=== PATIENT | female | born 1975 | race Caucasian/White ===

== ENCOUNTER 2016-08-21 08:33 | Inpatient (IN) | payer BC, MEDICAID ==
[2016-08-21 09:34] LABS: Hematocrit 39 % (35-47); Hemoglobin 12.7 g/dl (12.0-16.0); Mean Corpuscular HGB Conc 33 g/dl (31-36); Mean Corpuscular Hemoglobin 32 pg (27-31); Mean Corpuscular Volume 96 fL (80-97); Mean Platelet Volume 9 um3 (7.4-10.4); Red Blood Count 4.03 10^6/ul (4.0-5.4); Red Cell Distribution Width 14 % (10.5-15); White Blood Count 11.4 10^3/ul (3.5-10.8)
[2016-08-21] MEDS ORDERED: fentaNYL* 50 MCG/ML 2 ML VIAL (100 MCG VIAL) ONE (09:41)
[2016-08-21] MEDS ORDERED: Famotidine TAB* 20 MG PO PRN (11:12)
[2016-08-21] MEDS ORDERED: Phenylephrine IV* 40 MCG/ML 10 ML SYRINGE IV PUSH PRN ×2 (11:12)
[2016-08-21] MEDS ORDERED: EPHEDrine (Pressors)* 50 MG/ML VIAL IV PUSH PRN ×2 (11:12)
[2016-08-21] MEDS ORDERED: Sodium Citrate/Citric Acid* 15 ML UDC PO PRN (11:12)
[2016-08-21] MEDS ORDERED: Oxytocin in LR* 20 UNITS/1,000 ML BAG IVPB ONE (13:11)
[2016-08-21] MEDS ORDERED: Ibuprofen TAB* 600 MG PO PRN (13:39)
[2016-08-21] MEDS ORDERED: Dibucaine 1% 28.35 GM TUBE PR PRN (13:39)
[2016-08-21] MEDS ORDERED: Acetaminophen TAB* 325 MG PO PRN (13:39)
[2016-08-21] MEDS ORDERED: Witch Hazel PAD* JAR TOPICAL PRN (13:39)
[2016-08-21] MEDS ORDERED: Glycerin ADULT SUPP PR PRN (13:39)
[2016-08-21] MEDS ORDERED: Oxytocin in LR* 20 UNITS/1,000 ML BAG IVPB SCH (14:00)
[2016-08-21] MEDS ORDERED: Lidocaine 1% MPF wEPI 200,000* 30 ML SDV ONE (16:46)
[2016-08-21] MEDS: Docusate CAP* 100 MG PO SCH ×2 (17:51→20:22)
[2016-08-21] MEDS: Simethicone CHEW TAB* 80 MG PO SCH ×2 (17:51→20:22)
[2016-08-22 07:33] LABS: Hematocrit 33 % (35-47); Hemoglobin 10.9 g/dl (12.0-16.0); Mean Corpuscular HGB Conc 34 g/dl (31-36); Mean Corpuscular Hemoglobin 32 pg (27-31); Mean Corpuscular Volume 95 fL (80-97); Mean Platelet Volume 10 um3 (7.4-10.4); Red Blood Count 3.41 10^6/ul (4.0-5.4); Red Cell Distribution Width 14 % (10.5-15); White Blood Count 11.2 10^3/ul (3.5-10.8)
[2016-08-22] MEDS ORDERED: Ferrous Gluconate TAB* 324 MG TAB PO SCH (09:00)
[2016-08-22] MEDS: Docusate CAP* 100 MG PO SCH ×2 (10:36→11:42)
[2016-08-22 12:14] VITALS: BP 97/54
== END 2016-08-22 16:17 | disposition home or self-care (01) | DRG 560 ==
LOC: MCHOBOUT 08:33 → MCHOB 08:50
PROVIDERS: ADMIT Obstetrics & Gynecology; ATTEND Obstetrics & Gynecology
PROC: 10E0XZZ Delivery of Products of Conception, External Approach (ICD-10-PCS; principal; 2016-08-21)
PROC: 0KQM0ZZ Repair Perineum Muscle, Open Approach (ICD-10-PCS; 2016-08-21)
PROC: 10907ZC Drainage of Amniotic Fluid, Therapeutic from Products of Conception, Via Natural or Artificial Opening (ICD-10-PCS; 2016-08-21)
DX: O48.0 Post-term pregnancy (principal); K58.9 Irritable bowel syndrome, unspecified; O70.1 Second degree perineal laceration during delivery; O66.0 Obstructed labor due to shoulder dystocia; M79.7 Fibromyalgia; O09.523 Supervision of elderly multigravida, third trimester; Z3A.00 Weeks of gestation of pregnancy not specified; Z88.1 Allergy status to other antibiotic agents; Z88.8 Allergy status to other drugs, medicaments and biological substances; Z91.041 Radiographic dye allergy status; Z3A.41 41 weeks gestation of pregnancy; Z37.0 Single live birth
CPT/HCPCS: 36415; 85025; 86850; 86900; 86901; A9270-GY; J2001; J3010

== ENCOUNTER 2016-10-30 12:44 | Emergency (ER) | payer BC, MEDICAID ==
[2016-10-30 13:22] LABS: Hematocrit 40 % (35-47); Hemoglobin 13.2 g/dl (12.0-16.0); Mean Corpuscular HGB Conc 33 g/dl (31-36); Mean Corpuscular Hemoglobin 31 pg (27-31); Mean Corpuscular Volume 94 fL (80-97); Mean Platelet Volume 8 um3 (7.4-10.4); Red Blood Count 4.24 10^6/ul (4.0-5.4); Red Cell Distribution Width 13 % (10.5-15); White Blood Count 5.7 10^3/ul (3.5-10.8)
[2016-10-30] MEDS ORDERED: Albuterol/Ipratropium NEB.SOL* Albuterol 2.5 MG/Ipratropium 0.5 MG 3 ML INH ONE (13:33)
[2016-10-30 13:39] LABS: Albumin 4.3 g/dL (3.2-5.2); BUN/Creatinine Ratio 17.2 (8-20); Calcium 9.3 mg/dL (8.6-10.3); EGFR African American 148.1 (>60); EGFR Non-African American 115.1 (>60); Globulin 2.7 g/dL (2-4); Magnesium 2.3 mg/dL (1.9-2.7); Potassium 3.8 mmol/L (3.5-5.0); Total Bilirubin 2.5 mg/dL (0.2-1.0)
--- NOTE | 2016-10-30 13:45 | RAD ---
Indication: Chest tightness. Arrhythmia. Asthma. Comparison: No relevant prior exams available on the [facility] for comparison. Technique: Upright AP 1315 hours Report: Elevated lung volumes suggest potential obstructive lung disease. No pulmonary infiltrate, focal pulmonary lesion, pleural effusion, pneumothorax. The heart, pulmonary vasculature, and mediastinal contours are unremarkable. IMPRESSION: Stigmata of probable obstructive lung disease. No acute cardiopulmonary process evident.
[2016-10-30 14:16] LABS: T4 5.31 mcg/mL (6.09-12.23)
[2016-10-30 14:17] LABS: TSH (Thyroid Stimulating Horm) 0.89 mcIU/mL (0.34-5.60)
[2016-10-30] MEDS ORDERED: predniSONE TAB* 20 MG PO ONE (16:12)
[2016-10-30 16:24] VITALS: BP 99/61
--- NOTE | 2016-10-31 11:05 | ED ---
Christie Rodriguez Auryana, scribed for Zack Rowland MD on 10/30/16 at 1336 . Asthma - HPI Summary HPI Summary: 41 y/o female presents to ED c/o of asthma and chest tightness starting 6 days ago. She has had intermittent chest tightness since moving into her new house and reports smells of mold and mildew in one room in her new house. She also has SOB, a non-productive cough, postnasal drip and occasional chills when sitting in front of the air conditioning. She denies any fevers. Potential sick contact at home with children - sinus infection and GI illness. Patient also reports that she gave 9 weeks ago. Symptoms not improved with Xopenex and Albuterol (reports outdated medication). PMHx is significant for SVT and asthma- reports has been well-controlled until current complaint. - History of Current Complaint Stated Complaint: CHEST TIGHTNESS Time Seen by Provider: 10/30/16 12:52 Hx Obtained From: Patient Hx Last Menstrual Period: ~6 WEEKS AGO Onset/Duration: Gradual Onset Timing: Intermittent Episode Lasting Initial Severity: Mild Current Severity: Mild Pain Intensity: 0 Pain Scale Used: 0-10 Numeric Location/Character: Cough (Nonproductive) Alleviating Symptoms: Nothing - Used outdated xopenex and albuterol with no effect Associated Signs and Symptoms: Positive: Shortness of Breath Related History: Similar Episode/Dx as - history of asthma - Allergy/Home Medications Allergies/Adverse Reactions: Allergies Allergy/AdvReac Type Severity Reaction Status Date / Time Amoxicillin Allergy Severe DYSPNEA Verified 08/21/16 10:45 Pseudoephedrine Allergy Severe Tachycardia Verified 08/21/16 10:45 IVP DYE Allergy Severe DYSPNEA Uncoded 08/21/16 10:45 AUGMENTIN AdvReac Severe Diarrhea Uncoded 08/21/16 10:45 PMH/Surg Hx/FS Hx/Imm Hx Cardiovascular History: Reports: Hx Supraventricular Ventricular Tachycardia - Cardiac ablation, Other Cardiovascular Problems/Disorders - Sluggish tricuspid mitral valve Respiratory History: Reports: Hx Asthma - Cancer History Hx Hematologic Symptoms: No - Surgical History Surgery Procedure, Year, and Place: CARDIAC ABLATION FOR SVT, CERVICAL POLYP REMOVED 2002, Hx Anesthesia Reactions: No Infectious Disease History: No Infectious Disease History: Denies: Traveled Outside the [place] in Last 30 Days - Family History Known Family History: Positive: Cardiac Disease - Father had stents, Diabetes - Father had type 2 diabetes, Respiratory Disease - Father - pneumonia, Other - Father - TIA, Mother - gallbladder issues Negative: Renal Disease, Seizure Disorder - Social History Occupation: Employed Full-time - homemaker Lives: With Family Alcohol Use: None Substance Use Type: Reports: None Smoking Status (MU): Never Smoked Tobacco Have You Smoked in the Last Year: No Review of Systems Positive: Chills - Only when sitting in front of AC. Negative: Fever Eyes: Negative Positive: Other - Postnasal drip Cardiovascular: Negative Positive: Shortness Of Breath, Cough - Nonproductive Gastrointestinal: Negative Genitourinary: Negative Musculoskeletal: Negative Skin: Negative Neurological: Negative Psychological: Normal All Other Systems Reviewed And Are Negative: Yes Physical Exam - Summary Physical Exam Summary: VITAL SIGNS: Reviewed. GENERAL: Patient is a well developed and nourished female with some distress secondary to the shortness of breath. However, she is able to speak in full sentences. HEAD AND FACE: Normocephalic and atraumatic. EYES: PERRLA, EOMI x 2, No injected conjunctiva. EARS: Hearing grossly intact. Ear canals and tympanic membranes WNL MOUTH: Dry oral mucosa. NECK: Supple, trachea is midline, no adenopathy, no JVD, no carotid bruit. CHEST: Symmetric, No intercostal or abdominal retraction, LUNGS: Slight wheezing and decreased breath sounds in the bases of the lungs .No crackles. CVS: RRR,, S1 and S2 present, no murmurs or gallops appreciated. ABDOMEN: Soft, non-tender. No signs of distention. Positive BS. No rebound, no guarding, and no masses palpated. EXTREMITIES: FROM in all major joints, no edema, no cyanosis or clubbing. NEURO: Alert and oriented x 3. No acute neurological deficits. Speech is normal and follows commands. SKIN: Dry and warm. Triage Information Reviewed: Yes Vital Signs On Initial Exam: Initial Vitals Temp Pulse Resp BP Pulse Ox 98.6 F 72 16 108/72 100 10/30/16 12:56 10/30/16 12:56 10/30/16 12:56 10/30/16 12:56 10/30/16 12:56 Vital Signs Reviewed: Yes - [place] Coma Scale Coma Scale Total: 15 Diagnostics - Vital Signs Vital Signs Temp Pulse Resp BP Pulse Ox 10/30/16 12:56 98.6 F 72 16 108/72 100 - Laboratory Lab Results: Lab Results 10/30/16 Range/Units 13:07 WBC 5.7 (3.5-10.8) 10^3/ul RBC 4.24 (4.0-5.4) 10^6/ul Hgb 13.2 (12.0-16.0) g/dl Hct 40 (35-47) % MCV 94 (80-97) fL MCH 31 (27-31) pg MCHC 33 (31-36) g/dl RDW 13 (10.5-15) % Plt Count 223 (150-450) 10^3/ul MPV 8 (7.4-10.4) um3 Neut % (Auto) 76.0 (38-83) % Lymph % (Auto) 16.2 L (25-47) % [place] % (Auto) 6.1 (1-9) % Eos % (Auto) 1.2 (0-6) % Baso % (Auto) 0.5 (0-2) % Absolute Neuts (auto) 4.3 (1.5-7.7) 10^3/ul Absolute Lymphs (auto) 0.9 L (1.0-4.8) 10^3/ul Absolute Monos (auto) 0.3 (0-0.8) 10^3/ul Absolute Eos (auto) 0.1 (0-0.6) 10^3/ul Absolute Basos (auto) 0 (0-0.2) 10^3/ul Absolute Nucleated RBC 0 10^3/ul Nucleated RBC % 0 Result Diagrams: 10/30/16 13:07 10/30/16 13:07 Lab Statement: Any lab studies that have been ordered have been reviewed, and results considered in the medical decision making process. - Radiology Chest XRAY Xray Interpretation: Positive (See Comments) - Stigmata of probable obstructive lung disease. No acute cardiopulmonary process evident. Radiology Interpretation Completed By: Radiologist Asthma Course/Dx - Course Assessment/Plan: 41 y/o female presents to ED c/o of asthma and chest tightness starting 6 days ago. She has had intermittent chest tightness since moving into her new house and reports smells of mold and mildew in one room in her new house. She also has SOB, a non-productive cough, postnasal drip and occasional chills when sitting in front of the air conditioning. She denies any fevers. Potential sick contact at home with children - sinus infection and GI illness. Patient also reports that she gave 9 weeks ago. Symptoms not improved with Xopenex and Albuterol (reports outdated medication). PMHx is significant for SVT and asthma-reports has been well-controlled until current complaint. Test results WNL except trop #1: 0, 3 hrs later trop #2: 0 . In ED course, patient was given duo-nebulizer and symptoms improved. At this point, patient is asymptomatic - no CP or SOB. Patient requests prescription for pulmicort singular and albuterol. I discussed discharge and the need for PCP follow up with the patient. Patient requested to return to ED if symptoms do not improve or worsen. Patient is hemodynamically stable and A&O x3. - Diagnoses Differential Diagnosis/HQI/PQRI: Positive: Acute Asthma, COPD Excerbation, Pneumonia Provider Diagnoses: Asthma Discharge - Discharge Plan Condition: Stable Disposition: HOME Prescriptions: Albuterol 2.5MG/3ML (0.083%)* [Ventolin 2.5 MG/3 ML NEB.SERA*] 2.5 mg INH Q4H #1 box Budesonide Flexhaler 90 (NF) [Pulmicort Flexhaler 90 mcg/act (NF)] 1 puff INH Q4H #1 mdi Montelukast Sodium TAB* [Singulair TAB*] 10 mg PO DAILY #15 tab Patient Education Materials: Asthma (ED), Chest Pain (ED) Referrals: Messi Khan MD [Primary Care Provider] - (Please follow up 2-3 days) The documentation as recorded by the Christie chen Auryana accurately reflects the service I personally performed and the decisions made by , Zack Rowland MD.
== END 2016-10-30 16:59 | disposition home or self-care (01) ==
LOC: ED 12:44
DX: J45.909 Unspecified asthma, uncomplicated (principal); R06.02 Shortness of breath; R05 Cough
CPT/HCPCS: 36415; 71010; 80053; 82550; 82553; 83605; 83735; 83880; 84436; 84443; 84484; 85025; 94640; 99283; A9270-GY; J7512

== ENCOUNTER 2018-05-02 05:10 | Emergency (ER) | payer BC, MEDICAID ==
--- OUTSIDE RECORDS SUMMARY | 2018-05-02 05:48 | XMS REPORT | Continuity of Care Document ---
:1975 External Reference #:[id number] Author Name Chacho Casie Care Team Providers Name Role Phone Gale Núñez MD Primary Care Physician Unavailable Payers Type Date Identification Numbers Payment Provider Subscriber Policy Number: [id number] [employer] Henrique Landaverde PayID: [id number] [address] [address] [place] [address] Policy Number: [id number] Medicaid [place] Henrique Landaverde PayID: [id number] [address] [place] [address] Advance Directives Description No Information Available Problems Date Description Provider Status Onset: 01/21/2016 Multigravida Mansi Flaherty CNM Active Onset: 01/21/2016 H/O: section Mansi Flaherty CNM Active Note: followed by successful Family History Date Family Member(s) Problem(s) Comments Father Diabetes, Type 2 Father Heart Disease Father CHF Mother Breast Cancer Children 6 First Son A&W Second Son A&W Third Son A&W Fourth Son A&W First Daughter A&W Second Daughter A&W Siblings 2 First Brother A&W Second Brother Hypothyroidism Paternal Grandfather Anemia Paternal Grandfather due to Diabetes () Paternal Grandfather megaloblastic anemia Paternal Grandmother due to Pneumonia () Maternal Grandfather due to Unknown Causes () Maternal Grandmother due to Pneumonia () Maternal Grandmother Alzheimer's Disease Paternal Uncles Diabetes, Type 2 Paternal Uncles Parkinson's Disease Social History Type Date Description Comments Sex Unknown Education Highest level completed, Associates Degree Marital Status Lives With Spouse Lives With Children 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 Cigarette Use Does Not Smoke Cigarettes ETOH Use Denies alcohol use Recreational Drug Use Denies Drug Use Tobacco Use Start: Unknown Patient has never smoked Smoking Status Reviewed: 04/27/18 Patient has never smoked Exercise Type/Frequency Exercises regularly Seat Belt/Car Seat Always uses seat belt Currently Active Patient is currently sexually active STD's No STD History Allergies, Adverse Reactions, Alerts Date Description Reaction Status Severity Comments 12/24/2015 Macrobid Allergic asthma Active 12/24/2015 Cipro Allergic asthma Active 12/24/2015 Pseudoephedrine tachycardia Active 12/24/2015 Augmentin intolerance not an allergy Active 12/24/2015 Erythromycin Nausea and Vomiting Active 12/24/2015 Contrast Dye Allergic asthma Active Medications Medication Date Status Form Strength Qnty SIG Indications Ordering Provider Active Unknown Vitamins /0000 Vitamin D Active Unknown /0000 Vitamin C Active Unknown /0000 Hydrocortisone 07/30 Hx Cream 1-1% 30gm apply to Laurikesha Wheatley/Pramoxin affected area Gelber, e - 3-4 times M.D. 08/11 daily. use applicator supplied. Lancets 06/27 Hx Misc 100un for use with Qiana its blood glucose Radha, - meter. use as 01/01 directed times a day Proctofoam HC 06/27 Hx Foam 1-1% 20gm apply to [facility] affected area Radha, - 3-4 times LM 07/30 daily. use applicator supplied. Blood Glucose 05/28 Hx Kit W/Device 1unit To use with 648.83 Qiana Monitoring s test strips Radha, System - 4x day. 01/01 Please test glucose levels fasting in the morning. Followed by 2 hours after each meal. Blood Glucose 05/19 Hx Kit W/Device 1unit Use as Casie Monitoring /2015 s directed Jyotsna System - , CNM 05/28 Blood Glucose 05/19 Hx Strips 1Box Check blood Mahrie Test /2015 glucose Flaherty, - 4x/day as CN 01/01 directed. Dx: /2016 o99.810 abnormal glucose complicating Glucosource 05/19 Hx Misc 1Box use as Lauri A. Lancets directed Swapna Cordoba M.DAntionette 01/01 Cod Liver Oil Hx Unknown /0000 - 04/06 Magnesium Hx Capsules 300mg Unknown / - 08/11 Prednisone Hx Unknown / - 08/11 Singulair Hx Unknown - 08/11 Zyrtec Allergy Hx Unknown / - 08/11 Asmanex HFA Hx Unknown / - 08/11 Pulmicort Hx Unknown 08/11 Rhinocort Hx Unknown Allergy /08/11 Mucinex DM Hx Unknown - 08/11 Medications Administered in Office Medication Date Status Form Strength Qnty SIG Indications Ordering Provider No PT Tbco Administered Injection Tamela SCRN RNG 018 Jump, ANP-C PT SCRN Tbco Administered Injection Tamela Id as Non User 018 Jump, ANP-C PT SCRN Tbco Administered Injection Lauri Tiffanie Id as Non User 018 Kristyn Cordoba PT SCRN Tbco Administered Injection Lauri Moreno Id as Non User 018 Kristyn Cordoba Immunizations Description No Information Available Vital Signs Date Vital Result Comment 04/27/2018 1:14pm BP Systolic 100 mmHg BP Diastolic 72 mmHg Height 62 inches 5'2" Last Menstrual Period [id number] 7 Parity 6 04/13/2018 11:44am BP Systolic 98 mmHg BP Diastolic 62 mmHg Height 62 inches 5'2" Weight 116.00 lb BMI (Body Mass Index) 21.2 kg/m2 Last Menstrual Period 0585434 7 Parity 6 04/06/2018 3:17pm BP Systolic 104 mmHg BP Diastolic 58 mmHg Height 62 inches 5'2" Weight 112.00 lb BMI (Body Mass Index) 20.5 kg/m2 Last Menstrual Period 0191449 7 Parity 6 10/26/2017 2:45pm BP Systolic 92 mmHg BP Diastolic 64 mmHg Height 62 inches 5'2" Weight 114.00 lb BMI (Body Mass Index) 20.8 kg/m2 6 Parity 6 08/11/2017 11:27am BP Systolic 98 mmHg BP Diastolic 62 mmHg Height 62 inches 5'2" Weight 112.00 lb BMI (Body Mass Index) 20.5 kg/m2 6 Parity 6 01/01/2017 9:35am BP Systolic 110 mmHg BP Diastolic 60 mmHg Height 62 inches 5'2" Weight 119.00 lb BMI (Body Mass Index) 21.8 kg/m2 Last Menstrual Period 3376272 6 Parity 6 10/01/2016 2:56pm BP Systolic 100 mmHg BP Diastolic 60 mmHg Height 62 inches 5'2" Weight 130.00 lb BMI (Body Mass Index) 23.8 kg/m2 Last Menstrual Period 3588258 6 Parity 6 01/21/2016 1:29pm BP Systolic 114 mmHg BP Diastolic 64 mmHg Height 62 inches 5'2" Weight 123.00 lb BMI (Body Mass Index) 22.5 kg/m2 Last Menstrual Period 2857187 6 Parity 5 12/24/2015 10:14am BP Systolic 114 mmHg BP Diastolic 66 mmHg Height 62 inches 5'2" Weight 117.00 lb BMI (Body Mass Index) 21.4 kg/m2 Last Menstrual Period 7697242 6 Parity 5 Results Test Date Facility Test Result H/L Range Note Laboratory test 04/13/2018 [facility] HCG 21331.00 [address] [place] [address] mIU/mL [phone] Laboratory test 04/06/2018 [facility] HCG 115502.00 [address] [place] [address] mIU/mL [phone] Laboratory test 08/11/2017 [facility] Follicle 19.8 mIU/mL 3, 4 [place] [address] Stimulating [phone] Hormone HCG < 0.60 mIU/mL 5 Estradiol 261 pg/mL 6 CBC With No 01/01/2017 [facility] White Blood 6.2 10^3/uL N 3.5-10.8 [place] [address] Count [phone] Red Blood Count 4.05 10^6/uL N 4.0-5.4 Hemoglobin 13.3 g/dL N 12.0-16.0 Hematocrit 40 % N 35-47 Mean Corpuscular Volume 98 fL High 80-97 Mean Corpuscular Hemoglobin 33 pg High 27-31 Mean Corpuscular HGB Conc 34 g/dL N 31-36 Red Cell Distribution Width 14 % N 10.5-15 Platelet Count 230 10^3/uL N 150-450 Mean Platelet Volume 9 um3 N 7.4-10.4 Laboratory test 01/01/2017 [facility] T4 Free 0.86 ng/dL N 0.61-1.12 7 [place] [address] [phone] TSH 0.98 mcIU/mL N 0.34-5.60 8 CBC Auto Diff 12/26/2016 [facility] White Blood 4.8 10^3/uL N 3.5-10.8 [place] [address] Count [phone] Red Blood Count 4.18 10^6/uL N 4.0-5.4 Hemoglobin 13.6 g/dL N 12.0-16.0 Hematocrit 41 % N 35-47 Mean Corpuscular Volume 97 fL N 80-97 Mean Corpuscular Hemoglobin 33 pg High 27-31 Mean Corpuscular HGB Conc 33 g/dL N 31-36 Red Cell Distribution Width 13 % N 10.5-15 Platelet Count 196 10^3/uL N 150-450 Mean Platelet Volume 9 um3 N 7.4-10.4 Abs Neutrophils 3.5 10^3/uL N 1.5-7.7 Abs Lymphocytes 0.8 10^3/uL Low 1.0-4.8 Abs Monocytes 0.3 10^3/uL N 0-0.8 Abs Eosinophils 0.1 10^3/uL N 0-0.6 Abs Basophils 0 10^3/uL N 0-0.2 Abs Nucleated RBC 0 10^3/uL N Granulocyte % 72.7 % N 38-83 Lymphocyte % 17.5 % Low 25-47 Monocyte % 7.2 % N 1-9 Eosinophil % 1.6 % N 0-6 Basophil % 1.0 % N 0-2 Nucleated Red Blood Cells % 0 N Comp Metabolic Panel 12/26/2016 [facility] Sodium 137 mmol/L N 133-145 [place], [place] [id number] [phone] Potassium 4.1 mmol/L N 3.5-5.0 Chloride 103 mmol/L N 101-111 Co2 Carbon Dioxide 26 mmol/L N 22-32 Anion Gap 8 mmol/L N 2-11 Glucose 65 mg/dL Low 70-100 Blood Urea Nitrogen 12 mg/dL N 6-24 Creatinine 0.62 mg/dL N 0.51-0.95 BUN/Creatinine Ratio 19.4 N 8-20 Calcium 9.2 mg/dL N 8.6-10.3 Total Protein 6.9 g/dL N 6.4-8.9 Albumin 4.4 g/dL N 3.2-5.2 Globulin 2.5 g/dL N 2-4 Albumin/Globulin Ratio 1.8 N 1-3 Total Bilirubin 1.80 mg/dL High 0.2-1.0 Alkaline Phosphatase 84 U/L N 34-104 Alt 23 U/L N 7-52 Ast 17 U/L N 13-39 Egfr Non- 106.6 N >60 Egfr 137.1 N >60 9 Laboratory test 12/26/2016 [facility] Magnesium 2.0 mg/dL N 1.9-2.7 finding [place], [place] [id number] [phone] Triglycerides 62 mg/dL N 10 HDL Cholesterol 60.4 mg/dL N 11 LDL Direct 98 mg/dL N 12 Vitamin D Total 25(Oh) 74.2 ng/mL High 30-50 Urinalysis Profile 12/26/2016 [facility] Urine Color Yellow N [place], [place] [id number] [phone] Urine Appearance Clear N Urine Specific [place] 1.015 N 1.010-1.030 Urine pH 7.0 N 5-9 Urine Urobilinogen Negative N Negative Urine Ketones 1+ Abnormal Negative Urine Protein Negative N Negative Urine Leukocytes Negative N Negative Urine Blood 1+ Abnormal Negative Urine Nitrite Negative N Negative Urine Bilirubin Negative N Negative Urine Glucose Negative N Negative Urine White Blood Cell Trace(0-5/hpf) N Absent Urine Red Blood Cell Trace(0-2/hpf) N Absent Urine Bacteria 1+ Abnormal Absent Urine Squamous Epithelial Cell Present Abnormal Absent Urine Culture And 12/26/2016 [facility] Urine Culture SEE RESULT 13 [place] [address] BELOW [phone] Laboratory test 10/30/2016 [facility] Troponin I 0.00 ng/mL N <0.04 [place] [address] [phone] Laboratory test 07/15/2016 [facility] Group B Strep SEE RESULT 14, [address] [place] [address] Culture BELOW [phone] Screen Laboratory test 05/13/2016 [facility] Glucose 1 HR 157 mg/dL N 70-16 [address] [place] [address] Post Prandial 0 [phone] CBC With No Diff 05/13/2016 [facility] White Blood 8.4 10^3/uL N 3.5-1 [place] [address] Count 0.8 [phone] Red Blood Count 3.82 10^6/uL Low 4.0-5.4 Hemoglobin 12.5 g/dL N 12.0-16.0 Hematocrit 38 % N 35-47 Mean Corpuscular Volume 100 fL High 80-97 Mean Corpuscular Hemoglobin 33 pg High 27-31 Mean Corpuscular HGB Conc 33 g/dL N 31-36 Red Cell Distribution Width 15 % N 10.5-15 Platelet Count 210 10^3/uL N 150-450 Mean Platelet Volume 9 um3 N 7.4-10.4 GC/Chlamydia Dna 02/18/2016 [facility] Chlamydia [place] [address] trachomatis Rna [phone] Neisseria gonorrhoeae (GC) Rna Negative N Negative Urine Culture And 01/21/2016 [facility] Urine Culture SEE RESULT 17 [place] [address] BELOW [phone] Parvovirus B19 01/21/2016 [facility] Parvovirus 5.50 index Abnormal <0. 18 I[place] [address] (B19) IgG 90 [phone] Antibody Parvovirus (B19) IgM Antibody 0.16 index N <0.90 19 Parvovirus Interpretation See Comment N 20 Laboratory test 01/21/2016 [facility] TSH 0.34 mcIU/mL N 0.34- 5.60 [address] [place] [address] [phone] T4 Free 0.87 ng/dL N 0.61-1.12 22 Lead 01/21/2016 [facility] Lead <1.0 g/dL N 0.0-4.9 23 [place] [address] [phone] HIV 1/2 AB 01/21/2016 [facility] HIV 1 2 Nonreactive N Nonreactive [address] [place] [address] Antibody [phone] Type And 01/21/2016 [facility] [place] [address] Blood Type [phone] Antibody Screen NEGATIVE N CBC With No 01/21/2016 [facility] White Blood 8.7 10^3/uL N 3.5-10.8 [place] [address] Count [phone] Red Blood Count 4.02 10^6/uL N 4.0-5.4 Hemoglobin 13.1 g/dL N 12.0-16.0 Hematocrit 40 % N 35-47 Mean Corpuscular Volume 98 fL High 80-97 Mean Corpuscular Hemoglobin 33 pg High 27-31 Mean Corpuscular HGB Conc 33 g/dL N 31-36 Red Cell Distribution Width 14 % N 10.5-15 Platelet Count 278 10^3/uL N 150-450 Mean Platelet Volume 9 um3 N 7.4-10.4 PNL No 01/21/2016 [facility] Rubella Screen Immune IU/ mL N Immune 25 Urine [place], [place] [address] [phone] Hemoglobin A1c 5.1 % N Less than 6.0 26 Hepatitis B Surface Ag Nonreactive N Nonreactive 27 Syphillis Igg W/Reflex RPR Nonreactive N Nonreactive 28 Type And Screen 12/24/2015 [facility] Patient [place] [address] [phone] Antibody Screen NEGATIVE N Laboratory test 12/24/2015 [facility] HCG 22157.00 mIU /mL N [address] [place], [place] [address] [phone] 1 <5.0 Negative 5.0 - 25.0 Indeterminate (Repeat testing recommended after 72 hours) >25.0 Positive Perimenopausal women can display HCG levels of up to 20 mIU/mL 2 <5.0 Negative 5.0 - 25.0 Indeterminate (Repeat testing recommended after 72 hours) >25.0 Positive Perimenopausal women can display HCG levels of up to 20 mIU/mL 3 [id number] Normally menstruating females - Follicular phase 3 - 9 - Mid-cycle peak 4 - 23 - Luteal phase 1 - 6 Postmenopausal females 16 - 114 5 <5.0 Negative 5.0 - 25.0 Indeterminate (Repeat testing recommended after 72 hours) >25.0 Positive Perimenopausal women can display HCG levels of up to 20 mIU/mL 6 Estradiols <40 pg/mL are sent to a reference lab for low range testing. Postmenopausal Females < 20 Ovulating females: by day in cycle relative to LH Peak Follicular phase - 12 10-50 - 4 60-200 Mid-cycle - 1 120-375 Luteal phase + 2 50-155 + 6 60-260 + 12 15-115 7 [id number] Because ethnic data is not always readily available, this report includes an eGFR for both -Americans and non- Americans. The National Kidney Disease Education Program (NKDEP) does not endorse the use of the MDRD equation for patients that are not between the ages of 18 and 70, are , have extremes of body size, muscle mass, or nutritional status, or are non- or non-. According to the National Kidney Foundation, irrespective of diagnosis, the stage of the disease is based on the level of kidney function: Stage Description GFR(mL/min/1.73 m(2)) 1 Kidney damage with normal or decreased GFR 90 2 Kidney damage with mild decrease in GFR 60-89 3 Moderate decrease in GFR 30-59 4 Severe decrease in GFR 15-29 5 Kidney failure <15 (or dialysis) 10 Desirable <150 Borderline high 150-199 High 200-499 Very High >500 11 Low <40 Desirable: 40-60 High: >60 12 Desirable: <100 mg/dL Near Optimal: 100-129 mg/dL Borderline High: 130-159 mg/dL High: 160-189 mg/dL Very High: >189 mg/dL 13 SEE RESULT BELOW Name: HENRIQUE LANDAVERDE : [address]: Gale Núñez MD Acct: [id number] Unit: [id number] AGE: 41 Location: LAB Re12/26/16 SEX: F Status: REG REF SPEC: [id number] DAMIAN: 12/26/16-[address] [facility] [address]: Gale Núñez MD REQ: [id number] RECD: 12/26/16114 STATUS: BRITTA SANTA DR: Messi Khan MD _ SOURCE: URINE SPDESC: ORDERED: Urine Culture Procedure Result Reported Site Urine Culture Final 12/27/16- 1334 ML Organism 1 STREP GROUP B Logan Count 1-10,000 (Few) CFU/ML Organism 2 NORMAL REAGAN Logan Count 1-10,000 (Few) CFU/ML Susceptibility testing of penicillins and other B-lactams approved by FDA for treatment of Streptococcus pyogenes (Group A Strep) and Streptococcus agalactiae (Group B Strep) is not necessary for clinical purposes and need not be done routinely, since as with vancomycin, resistant strains have not been recognized. (CLSI Z009-S06;p.66) Positive isolates will be saved for one week. Please call the Microbiology Laboratory if further susceptibility testing is needed. * ML - MAIN LAB ([facility]) . END OF REPORT * ML=Testing performed at Main Lab DEPARTMENT OF PATHOLOGY, [address] [place] [address] Maverick Haines M.D. Director [facility] # [id number] 14 [id number] 15 SEE RESULT BELOW Name: HENRIQUE LANDAVERDE : [address]: Casie Back MD Acct: [id number] Unit: [id number] AGE: 40 Location: [facility] Re07/15/16 SEX: F Status: REG REF SPEC: [id number] DAMIAN: 07/15/16-[address] [facility] [address]: Casie Back MD REQ: [id number] RECD: 07/16/16-1256 STATUS: COMP _ SOURCE: CER/VAG/RE SPDESC: ORDERED: Grp Jerry Strp Scrn COMMENTS: [id number] QUERIES: Is Patient Penicillin Allergic? N Is patient penicillin allergic and/or sensitivities needed? N Provider Requisition # C77#[id number]_ Procedure Result Reported Site Group B Strep Culture Screen Final 07/19/16- 945 ML Group B Strep Screen Negative * ML - MAIN LAB ([facility]) . END OF REPORT * ML=Testing performed at Main Lab DEPARTMENT OF PATHOLOGY, [address] [place] [address] Maverick Haines M.D. Director [facility] # [id number] 16 [id number] 17 SEE RESULT BELOW Name: HENRIQUE LANDAVERDE : [address]: Mansi Flaherty [facility] Acct: [id number] Unit: [id number] AGE: 40 Location: [facility] Re01/21/16 SEX: F Status: REG REF SPEC: [id number] DAMIAN: 01/21/16-[address] [facility] [address]: Mansi Flaherty [facility] REQ: [id number] RECD: 01/21/16 STATUS: COMP _ SOURCE: URINE SPDESC: ORDERED: Urine Culture COMMENTS: [facility] [id number] Procedure Result Reported Site Urine Culture Final 01/23/16- 906 ML No growth of clinically significant organisms * ML - MAIN LAB ([facility]) . END OF REPORT * ML=Testing performed at Main Lab DEPARTMENT OF PATHOLOGY, [address] [place] [address] Maverick Haines M.D. Director [facility] # [id number] 18 Positive 19 Negative 20 RESULT: Results suggest past infection. Test Performed by: [facility] [place] [address] Plant Changer: Marlo Jeffrey II, M.D., Ph.D. 21 [id number] 22 [id number] 23 ADDITIONAL INFORMATION Testing performed by Inductively Coupled Plasma-Mass Spectrometry (ICP-MS). This test was developed and its performance characteristics determined by [facility] in a manner consistent with CLIA requirements. This test has not been cleared or approved by the U.S. Food and Drug Administration. 24 It is recognized that currently available assays for the detection of antibodies to HIV-1 and/or HIV-2 may not detect all infected individuals. HIV antibodies may be undetectable in some stages of the infection and in some clinical conditions. The performance of this assay has not been established for populations of infants or children. Assayed by Chemiluminescence Microparticle Immunoassay on the Siemens Advia Centaur CP. Values obtained with different methods or kits cannot be used interchangeably.The diagnostic specificity of the ADVIA Centaur 1/O/2 Enhanced assay in the low risk population was 99.90% (6052/6058) with a 95% confidence interval of 99.78 to 99.96%. 25 [id number] 26 Therapeutic target for the treatment of diabetes Mellitus patients is <7% HBA1C, and in selective patients <6.0%.Please refer to [place] [employer] Diabetic care guidelines for further information. 27 [id number] 28 Warning: A positive result is not useful for establishing a diagnosis of syphilis. In most situations, such a result may reflect a prior treated infection; a negative result can exclude a diagnosis of syphilis except for incubating or early primary disease. 29 <5.0 Negative 5.0 - 25.0 Indeterminate (Repeat testing recommended after 72 hours) >25.0 Positive Perimenopausal women can display HCG levels of up to 20 mIU/mL Procedures Date Code Description Status 04/27/2018 15536 OB Ultrasound First Trimester Completed 04/13/2018 86475 OB Ultrasound First Trimester Completed 04/06/2018 92206 OB Ultrasound First Trimester Completed 10/26/2017 23218 Echography Pelvic Limited Or Follow-Up Completed 10/26/2017 18466 Echography Transvaginal Completed 10/01/2016 62143 Echography Transvaginal Completed 08/18/2016 49039 Antepartum Care 7 Or More Visits Completed 08/18/2016 20605 Non-Stress Test Completed 08/14/2016 27547 Biophysical Profile Without Non Stress Test Completed 08/14/2016 96093 Echography Uterus Follow-Up Or Repeat Completed 07/15/2016 92140 Biophysical Profile Without Non Stress Test Completed 07/15/2016 90848 Echography Uterus Follow-Up Or Repeat Completed 06/24/2016 77231 Biophysical Profile Without Non Stress Test Completed 06/24/2016 34449 Echography Uterus Follow-Up Or Repeat Completed 03/20/2016 99399 Echography Uterus Complete Completed 01/21/2016 88042 OB Ultrasound First Trimester Completed Encounters Type Date Location Provider Dx Diagnosis Office Visit 04/13/2018 [facility] Kiki Duong O02.1 Missed 11:45a BENITA Em Office Visit 04/06/2018 [facility] Office ROSA Dumont N91.1 Secondary amenorrhea 3:00p Office Visit 10/26/2017 [facility] Lauri Cordoba, N92.6 Irregular 2:40p M.D. menstruation, unspecified R19.07 Generalized intra-abd and pelvic swelling, mass and lump Office Visit 08/11/2017 11:40a [facility] Office Lauri Wilson92.6 Irregular Kristyn Cordoba menstruation, unspecified O36.80x0 w inconclusive viability, unsp R63.4 Abnormal weight loss R19.07 Generalized intra-abd and pelvic swelling, mass and lump Office Visit 01/01/2017 9:30a [facility] Messi Khan, N92.5 Other specified M.D. irregular menstruation Office Visit 08/22/2016 9:02a Delivery Casie Back, Z39.2 Encounter for MD routine follow-up Office Visit 12/24/2015 10:40a [facility] Tamela Parra, O20.0 Threatened ANP-C Plan of Treatment 04/06/2018 - Tamela Parra, ALYSSA-CN91.1 Secondary amenorrheaFollow up:r/v Wednesday BSU r/v 1 week u/s and consult viability
--- OUTSIDE RECORDS SUMMARY | 2018-05-02 05:49 | XMS REPORT | Continuity of Care Document ---
:1975 External Reference #:[id number] Author Name Kiki Em Care Team Providers Name Role Phone Gale Núñez MD Primary Care Physician Unavailable Payers Type Date Identification Numbers Payment Provider Subscriber Policy Number: [id number] [employer] Henrique Landaverde PayID: [id number] [address] [address] [place] [address] Policy Number: [id number] Medicaid [place] Henrique Landaverde PayID: [id number] [address] [place] [address] Advance Directives Description No Information Available Problems [...] Patient has never smoked Smoking Status Reviewed: 10/26/17 Patient has never smoked Exercise Type/Frequency Exercises [...] 07/30 Hx Cream 1-1% 30gm apply to Lauri Tiffanie Wheatley/Pramoxin affected area Gelber, e - 3-4 times M.D. 08/11 daily. use applicator supplied. Lancets 06/27 Hx Misc 100un for use with Qiana its blood glucose Radha, - meter. use as 01/01 directed times a day Proctofoam HC 06/27 Hx Foam 1-1% 20gm apply to [facility] affected area Radha, - 3-4 times LM 07/30 daily. use applicator supplied. Blood Glucose 05/28 Hx Kit W/Device 1unit To use with 648.83 [facility] /2016 s test strips Radha, System - 4x day. 01/01 Please test glucose levels fasting in the morning. Followed by 2 hours after each meal. Blood Glucose 05/19 Hx Kit W/Device 1unit Use as Casie Monitoring /2015 s directed Jyotsna System - , CNM 05/28 Blood Glucose 05/19 Hx Strips 1Box Check blood Mahrie Test /2016 glucose Flaherty, - 4x/day as CN 01/01 directed. Dx: /2016 o99.810 abnormal glucose complicating Glucosource 05/19 Hx Misc 1Box use as Lauri A. Lancets directed Beryl - M.DAntionette 01/01 Cod Liver Oil Hx Unknown - 04/06 Magnesium Hx Capsules 300mg Unknown / - 08/11 Prednisone Hx Unknown - 08/11 Singulair Hx Unknown - 08/11 Zyrtec Allergy Hx Unknown / - 08/11 Asmanex HFA Hx Unknown / - 08/11 Pulmicort Hx Unknown / - 08/11 Rhinocort Hx Unknown Allergy / - 08/11 Mucinex DM Hx Unknown - 08/11 Medications Administered in Office Medication Date Status Form Strength Qnty SIG Indications Ordering Provider No PT Tbco Administered Injection Tamela SCRN RNG 018 Jump, ANP-C PT SCRN Tbco Administered Injection Tamela Id as Non User 018 Jump, ANP-C PT SCRN Tbco Administered Injection Lauri A. Id as Non User 018 Kristyn Cordoba PT SCRN Tbco Administered Injection Lauri Moreno Id as Non User 018 Kristyn Cordoba Immunizations Description No Information Available Vital Signs Date Vital Result Comment 04/13/2018 11:44am BP Systolic 98 mmHg BP Diastolic 62 mmHg Height 62 inches 5'2" Weight 116.00 lb BMI (Body Mass Index) 21.2 kg/m2 Last Menstrual Period 1171967 7 Parity 6 04/06/2018 3:17pm BP Systolic 104 mmHg BP Diastolic 58 mmHg Height 62 inches 5'2" Weight 112.00 lb BMI (Body Mass Index) 20.5 kg/m2 Last Menstrual Period 9670927 7 Parity 6 10/26/2017 2:45pm BP Systolic [...] Mass Index) 21.8 kg/m2 Last Menstrual Period 0969834 6 Parity 6 10/01/2016 2:56pm BP Systolic 100 mmHg BP Diastolic 60 mmHg Height 62 inches 5'2" Weight 130.00 lb BMI (Body Mass Index) 23.8 kg/m2 Last Menstrual Period 9234438 6 Parity 6 01/21/2016 1:29pm BP Systolic 114 mmHg BP Diastolic 64 mmHg Height 62 inches 5'2" Weight 123.00 lb BMI (Body Mass Index) 22.5 kg/m2 Last Menstrual Period 6526431 6 Parity 5 12/24/2015 10:14am BP Systolic 114 mmHg BP Diastolic 66 mmHg Height 62 inches 5'2" Weight 117.00 lb BMI (Body Mass Index) 21.4 kg/m2 Last Menstrual Period 5907235 6 Parity 5 Results Test Date Facility Test Result H/L Range Note Laboratory test 04/13/2018 [facility] HCG <pending> [place] [address] [phone] Laboratory test 04/06/2018 [facility] HCG 546258.00 1 [place] [address] mIU/mL [phone] Laboratory test 08/11/2017 [facility] Follicle 19.8 mIU/mL 2, 3 [place] [address] Stimulating [phone] Hormone HCG < 0.60 mIU/mL 4 Estradiol 261 pg/mL 5 CBC With No 01/01/2017 [facility] White Blood 6.2 10^3/uL 3.5 -10.8 [place] [address] Count [phone] Red Blood Count 4.05 10^6/uL 4.0-5.4 Hemoglobin 13.3 g/dL 12.0-16.0 Hematocrit 40 % 35-47 Mean Corpuscular Volume 98 fL High 80-97 Mean Corpuscular Hemoglobin 33 pg High 27-31 Mean Corpuscular HGB Conc 34 g/dL 31-36 Red Cell Distribution Width 14 % 10.5-15 Platelet Count 230 10^3/uL 150-450 Mean Platelet Volume 9 um3 7.4-10.4 Laboratory test 01/01/2017 [facility] T4 Free 0.86 ng/dL 0.61 -1.12 6 [place] [address] [phone] TSH 0.98 mcIU/mL 0.34-5.60 7 CBC Auto Diff 12/26/2016 [facility] White Blood 4.8 10^3/uL 3.5-10.8 [place] [address] Count [phone] Red Blood Count 4.18 10^6/uL 4.0-5.4 Hemoglobin 13.6 g/dL 12.0-16.0 Hematocrit 41 % 35-47 Mean Corpuscular Volume 97 fL 80-97 Mean Corpuscular Hemoglobin 33 pg High 27-31 Mean Corpuscular HGB Conc 33 g/dL 31-36 Red Cell Distribution Width 13 % 10.5-15 Platelet Count 196 10^3/uL 150-450 Mean Platelet Volume 9 um3 7.4-10.4 Abs Neutrophils 3.5 10^3/uL 1.5-7.7 Abs Lymphocytes 0.8 10^3/uL Low 1.0-4.8 Abs Monocytes 0.3 10^3/uL 0-0.8 Abs Eosinophils 0.1 10^3/uL 0-0.6 Abs Basophils 0 10^3/uL 0-0.2 Abs Nucleated RBC 0 10^3/uL Granulocyte % 72.7 % 38-83 Lymphocyte % 17.5 % Low 25-47 Monocyte % 7.2 % 1-9 Eosinophil % 1.6 % 0-6 Basophil % 1.0 % 0-2 Nucleated Red Blood Cells % 0 Comp Metabolic Panel 12/26/2016 [facility] Sodium 137 mmol/L 133-145 [place] [address] [phone] Potassium 4.1 mmol/L 3.5-5.0 Chloride 103 mmol/L 101-111 Co2 Carbon Dioxide 26 mmol/L 22-32 Anion Gap 8 mmol/L 2-11 Glucose 65 mg/dL Low 70-100 Blood Urea Nitrogen 12 mg/dL 6-24 Creatinine 0.62 mg/dL 0.51-0.95 BUN/Creatinine Ratio 19.4 8-20 Calcium 9.2 mg/dL 8.6-10.3 Total Protein 6.9 g/dL 6.4-8.9 Albumin 4.4 g/dL 3.2-5.2 Globulin 2.5 g/dL 2-4 Albumin/Globulin Ratio 1.8 1-3 Total Bilirubin 1.80 mg/dL High 0.2-1.0 Alkaline Phosphatase 84 U/L 34-104 Alt 23 U/L 7-52 Ast 17 U/L 13-39 Egfr Non- 106.6 >60 Egfr 137.1 >60 8 Laboratory test 12/26/2016 [facility] Magnesium 2.0 mg/dL 1.9 -2.7 [place] [address] [phone] Triglycerides 62 mg/dL 9 HDL Cholesterol 60.4 mg/dL 10 LDL Direct 98 mg/dL 11 Vitamin D Total 25(Oh) 74.2 ng/mL High 30-50 Urine Culture And 12/26/2016 [facility] Urine Culture SEE RESULT 12 [place] [address] BELOW [phone] Urinalysis Profile 12/26/2016 [facility] Urine Color [place], [place] [address]15 [phone] Urine Appearance Clear Urine Specific [place] 1.015 1.010-1.030 Urine pH 7.0 5-9 Urine Urobilinogen Negative Negative Urine Ketones 1+ Negative Urine Protein Negative Negative Urine Leukocytes Negative Negative Urine Blood 1+ Negative Urine Nitrite Negative Negative Urine Bilirubin Negative Negative Urine Glucose Negative Negative Urine White Blood Cell Trace(0-5/hpf) Absent Urine Red Blood Cell Trace(0-2/hpf) Absent Urine Bacteria 1+ Absent Urine Squamous Epithelial Cell Present Absent Laboratory test 10/30/2016 [facility] Troponin I 0.00 ng/mL < 0.04 [place] [address] [phone] Laboratory test 07/15/2016 [facility] Group B Strep SEE RESULT 13, 14 [place] [address] Culture BELOW [phone] Screen CBC With No 05/13/2016 [facility] White Blood 8.4 3.5-10.8 [place] [address] Count 10^3/uL [phone] Red Blood Count 3.82 10^6/uL Low 4.0-5.4 Hemoglobin 12.5 g/dL 12.0-16.0 Hematocrit 38 % 35-47 Mean Corpuscular Volume 100 fL High 80-97 Mean Corpuscular Hemoglobin 33 pg High 27-31 Mean Corpuscular HGB Conc 33 g/dL 31-36 Red Cell Distribution Width 15 % 10.5-15 Platelet Count 210 10^3/uL 150-450 Mean Platelet Volume 9 um3 7.4-10.4 Laboratory test 05/13/2016 [facility] Glucose 1 HR 157 mg/dL 70-160 15 [place] [address] Post Prandial [phone] GC/Chlamydia 02/18/2016 [facility] Chlamydia [place] [address] trachomatis Rna [phone] Neisseria gonorrhoeae (GC) Rna Negative Negative Urine Culture And 01/21/2016 [facility] Urine Culture SEE RESULT 16 [place] [address] BELOW [phone] Parvovirus B19 Igg 01/21/2016 [facility] Parvovirus 5.50 index <0.90 17 & [place] [address] (B19) IgG [phone] Antibody Parvovirus (B19) IgM Antibody 0.16 index <0.90 18 Parvovirus Interpretation See Comment 19 Laboratory test 01/21/2016 [facility] TSH 0.34 mcIU/mL 0.34- 5.60 20 [place] [address] [phone] T4 Free 0.87 ng/dL 0.61-1.12 21 Lead 01/21/2016 [facility] Lead <1.0 g/dL 0.0-4.9 22 [place] [address] [phone] HIV 1/2 AB 01/21/2016 [facility] HIV 1 2 Nonreactive Nonreactive 23 [place] [address] Antibody [phone] Type And 01/21/2016 [facility] [place] [address] Blood Type [phone] Antibody Screen NEGATIVE CBC With No 01/21/2016 [facility] White Blood 8.7 10^3/uL 3.5 -10.8 [place] [address] Count [phone] Red Blood Count 4.02 10^6/uL 4.0-5.4 Hemoglobin 13.1 g/dL 12.0-16.0 Hematocrit 40 % 35-47 Mean Corpuscular Volume 98 fL High 80-97 Mean Corpuscular Hemoglobin 33 pg High 27-31 Mean Corpuscular HGB Conc 33 g/dL 31-36 Red Cell Distribution Width 14 % 10.5-15 Platelet Count 278 10^3/uL 150-450 Mean Platelet Volume 9 um3 7.4-10.4 PNL No 01/21/2016 [facility] Rubella Screen Immune IU/ mL Immune 24 [place] [address] [phone] Hemoglobin A1c 5.1 % Less than 6.0 25 Hepatitis B Surface Ag Nonreactive Nonreactive 26 Syphillis Igg W/Reflex RPR Nonreactive Nonreactive 27 Type And Screen 12/24/2015 [facility] [place] [address] [phone] Antibody Screen NEGATIVE Laboratory test 12/24/2015 [facility] HCG 47527.00 mIU /mL 28 [place] [address] [phone] 1 <5.0 Negative 5.0 - 25.0 Indeterminate (Repeat testing recommended after 72 hours) >25.0 Positive Perimenopausal women can display HCG levels of up to 20 mIU/mL 2 [id number] 3 Normally menstruating females - Follicular phase 3 - 9 - Mid-cycle peak 4 - 23 - Luteal phase 1 - 6 Postmenopausal females 16 - 114 4 <5.0 Negative 5.0 - 25.0 Indeterminate (Repeat testing recommended after 72 hours) >25.0 Positive Perimenopausal women can display HCG levels of up to 20 mIU/mL 5 Estradiols <40 pg/mL are sent to a reference lab for low range testing. Postmenopausal Females < 20 Ovulating females: by day in cycle relative to LH Peak Follicular phase - 12 10-50 - 4 60-200 Mid-cycle - 1 120-375 Luteal phase + 2 50-155 + 6 60-260 + 12 15-115 6 [id number] Because ethnic data is not always readily [...] 15-29 5 Kidney failure <15 (or dialysis) 9 Desirable <150 Borderline high 150-199 High 200-499 Very High >500 10 Low <40 Desirable: 40-60 High: >60 11 Desirable: <100 mg/dL Near Optimal: 100-129 mg/dL Borderline High: 130-159 mg/dL High: 160-189 mg/dL Very High: >189 mg/dL 12 SEE RESULT BELOW Name: HENRIQUE LANDAVERDE : [address]: Gale Núñez MD Acct: [id number] Unit: [id number] AGE: 41 Location: LAB Re12/26/16 SEX: F Status: REG REF SPEC: [id number] DAMIAN: 12/26/16-[address]: Gale Núñez MD REQ: [id number] RECD: 12/26/161140 STATUS: COMP MCKENNA DR: Messi Khan MD _ SOURCE: URINE SPDESC: ORDERED: Urine Culture Procedure Result Reported Site Urine Culture Final 12/27/16- 1334 ML Organism 1 STREP GROUP B [place] Count 1-10,000 (Few) CFU/ML Organism 2 NORMAL REAGAN [place] Count 1-10,000 (Few) CFU/ML Susceptibility testing of penicillins and other B-lactams approved by FDA for treatment of Streptococcus pyogenes (Group A Strep) and Streptococcus agalactiae (Group B Strep) is not necessary for clinical purposes and need not be done routinely, since as with vancomycin, resistant strains have not been recognized. (CLSI L491-J14;p.66) Positive isolates will be saved for one week. Please call the Microbiology Laboratory if further susceptibility testing is needed. * ML - MAIN LAB ([facility]) . END OF REPORT * ML=Testing performed at Main Lab DEPARTMENT OF PATHOLOGY, [address] [place] [address] Maverick Haines M.D. Director MICHAEL # [id number] 13 [id number] 14 SEE RESULT BELOW Name: HENRIQUE LANDAVERDE : [address]: Casie Back MD Acct: [id number] Unit: [id number] AGE: 40 Location: [facility] Re07/15/16 SEX: F Status: REG REF SPEC: [id number] DAMIAN: 07/15/16-1526 [facility] DR: Casie Back MD REQ: [id number] RECD: 07/16/16-1255 STATUS: COMP _ SOURCE: MARLENI/DWAYNE/RE SPDESC: ORDERED: Grp B Strp Scrn COMMENTS: [id number] QUERIES: Is Patient Penicillin Allergic? N Is patient penicillin allergic and/or sensitivities needed? N Provider Requisition # C77#[id number]_ Procedure Result Reported Site Group B Strep Culture Screen Final 07/19/16- 945 ML Group B Strep Screen Negative * ML - [facility] ([facility]) . END OF REPORT * ML=Testing performed at Main Lab DEPARTMENT OF PATHOLOGY, [address] [place] [address] Maverick Haines M.D. Director [facility] # [id number] 15 [id number] 16 SEE RESULT BELOW Name: HENRIQUE LANDAVERDE : [address]: Mansi Flaherty [facility] Acct: [id number] Unit: [id number] AGE: 40 Location: [facility] Re01/21/16 SEX: F Status: REG REF SPEC: [id number] DAMIAN: 01/21/16-1414 [facility] DR: Mansi Marga Flaherty [facility] REQ: [id number] RECD: 01/21/16 STATUS: COMP _ SOURCE: URINE SPDESC: ORDERED: Urine Culture COMMENTS: [facility] [id number] Procedure Result Reported Site Urine Culture Final 01/23/16- 906 ML No growth of clinically significant organisms * ML - MAIN LAB ([facility]) . END OF REPORT * ML=Testing performed at Main Lab DEPARTMENT OF PATHOLOGY, [address] [place] [address] Maverick Haines M.D. Director [facility] # [id number] 17 Positive 18 Negative 19 RESULT: Results suggest past infection. Test Performed by: [place] [address] Stroke Belt Sander Operator: Marlo Jeffrey II, M.D., Ph.D. 20 [id number] 21 [id number] 22 ADDITIONAL INFORMATION Testing performed by Inductively Coupled Plasma-Mass Spectrometry (ICP-MS). This test was developed and its performance characteristics determined by [facility] in a manner consistent with CLIA requirements. This test has not been cleared or approved by the U.S. Food and Drug Administration. 23 It is recognized that currently available assays [...] 95% confidence interval of 99.78 to 99.96%. 24 [id number] 25 Therapeutic target for the treatment of diabetes Mellitus patients is <7% HBA1C, and in selective patients <6.0%.Please refer to [place] [employer] Diabetic care guidelines for further information. 26 [id number] 27 Warning: A positive result is not useful for establishing a diagnosis of syphilis. In most situations, such a result may reflect a prior treated infection; a negative result can exclude a diagnosis of syphilis except for incubating or early primary disease. 28 <5.0 Negative 5.0 - 25.0 Indeterminate (Repeat testing recommended after 72 hours) >25.0 Positive Perimenopausal women can display HCG levels of up to 20 mIU/mL Procedures Date Code Description Status 04/13/2018 06915 OB Ultrasound First Trimester Completed 04/06/2018 58476 OB Ultrasound First Trimester Completed 10/26/2017 58271 Echography Pelvic Limited Or Follow-Up Completed 10/26/2017 09703 Echography Transvaginal Completed 10/01/2016 69188 Echography Transvaginal Completed 08/18/2016 88007 Antepartum Care 7 Or More Visits Completed 08/18/2016 74507 Non-Stress Test Completed 08/14/2016 25779 Biophysical Profile Without Non Stress Test Completed 08/14/2016 46912 Echography Uterus Follow-Up Or Repeat Completed 07/15/2016 92272 Biophysical Profile Without Non Stress Test Completed 07/15/2016 54258 Echography Uterus Follow-Up Or Repeat Completed 06/24/2016 93787 Biophysical Profile Without Non Stress Test Completed 06/24/2016 24708 Echography Uterus Follow-Up Or Repeat Completed 03/20/2016 50641 Echography Uterus Complete Completed 01/21/2016 78596 OB Ultrasound First Trimester Completed Encounters Type Date Location Provider Dx Diagnosis Office Visit 04/06/2018 [facility] ROSA Dumont N91.1 Secondary amenorrhea 3:00p Office Visit 10/26/2017 [facility] Lauri Cordoba, N92.6 Irregular 2:40p M.D. menstruation, unspecified R19.07 Generalized intra-abd and pelvic swelling, mass and lump Office Visit 08/11/2017 11:40a [facility] Lauri Moreno N92.6 Irregular Kristyn Cordoba menstruation, unspecified O36.80x0 w inconclusive viability, unsp R63.4 Abnormal weight loss R19.07 Generalized intra-abd and pelvic swelling, mass and lump Office Visit 01/01/2017 9:30a [facility] Messi Khan N92.5 Other specified MAntionetteDAntionette irregular menstruation Office Visit 08/22/2016 9:02a Delivery Casie Back, Z39.2 Encounter for MD routine follow-up Office Visit 12/24/2015 10:40a [facility] Tamela Prara, O20.0 Threatened ALYSSA-C Plan of Treatment 04/06/2018 - ALYSSA Dumont-CN91.1 Secondary amenorrheaFollow up:r/v Wednesday BSU r/v 1 week u/s and consult viability
--- OUTSIDE RECORDS SUMMARY | 2018-05-02 05:49 | XMS REPORT | Continuity of Care Document ---
:1975 External Reference #:[id number] Author Name Jennifer Dave Care Team Providers Name Role Phone Gale Núñez MD Primary Care Physician Unavailable Payers Type Date Identification Numbers Payment Provider Subscriber Policy Number: [id number] [employer] Henrique Landaverde PayID: [id number] [address] [address] [place] [address] Policy Number: [id number] Medicaid [place] Henrique Landaverde PayID: [id number] [address] [place] [address] Advance Directives Description No Information Available Problems [...] Hx Cream 1-1% 30gm apply to Lauri Wheatley/Pramoxin affected area Gelber, e - 3-4 times M.D. 08/11 daily. use applicator supplied. Lancets 06/27 Hx Misc 100un for use with Qiana its blood glucose Radha, - meter. use as 01/01 directed times a day Proctofoam HC 06/27 Hx Foam 1-1% 20gm apply to [facility] affected area Radha, - 3-4 times LM [...] Unknown / - 08/11 Singulair Hx Unknown / - 08/11 Zyrtec Allergy Hx Unknown / - 08/11 Asmanex HFA Hx Unknown /08/11 Pulmicort Hx Unknown 08/11 Rhinocort Hx Unknown Allergy /08/11 Mucinex DM Hx Unknown - 08/11 Medications Administered in Office Medication Date Status Form Strength Qnty SIG Indications Ordering Provider PT SCRN Tbco Administered Injection Lauri Moreno Id as Non User 018 Kristyn Cordoba PT SCRN Tbco Administered Injection Lauri Ocasio as Non User 018 Kristyn Cordoba Immunizations Description No Information Available Vital Signs Date Vital Result Comment 04/06/2018 3:17pm BP Systolic 104 mmHg BP Diastolic 58 mmHg Height 62 inches 5'2" Weight 112.00 lb BMI (Body Mass Index) 20.5 kg/m2 Last Menstrual Period 1844225 7 Parity 6 10/26/2017 2:45pm BP Systolic [...] Mass Index) 21.8 kg/m2 Last Menstrual Period 3338511 6 Parity 6 10/01/2016 2:56pm BP Systolic 100 mmHg BP Diastolic 60 mmHg Height 62 inches 5'2" Weight 130.00 lb BMI (Body Mass Index) 23.8 kg/m2 Last Menstrual Period 7904967 6 Parity 6 01/21/2016 1:29pm BP Systolic 114 mmHg BP Diastolic 64 mmHg Height 62 inches 5'2" Weight 123.00 lb BMI (Body Mass Index) 22.5 kg/m2 Last Menstrual Period 5005571 6 Parity 5 12/24/2015 10:14am BP Systolic 114 mmHg BP Diastolic 66 mmHg Height 62 inches 5'2" Weight 117.00 lb BMI (Body Mass Index) 21.4 kg/m2 Last Menstrual Period 4973746 6 Parity 5 Results Test Date Facility Test Result H/L Range Note Laboratory test 08/11/2017 [facility] Follicle 19.8 mIU/mL 1, 2 [place] [address] Stimulating [phone] Hormone HCG < 0.60 mIU/mL 3 Estradiol 261 pg/mL 4 CBC With No 01/01/2017 [facility] White Blood 6.2 10^3/uL 3.5 -10.8 [place] [address] Count [phone] Red Blood Count 4.05 10^6/uL 4.0-5.4 Hemoglobin 13.3 g/dL 12.0-16.0 Hematocrit 40 % 35-47 Mean Corpuscular Volume 98 fL High 80-97 Mean Corpuscular Hemoglobin 33 pg High 27-31 Mean Corpuscular HGB Conc 34 g/dL 31-36 Red Cell Distribution Width 14 % 10.5-15 Platelet Count 230 10^3/uL 150-450 Mean Platelet Volume 9 um3 7.4-10.4 Laboratory test 01/01/2017 [facility] T4 Free 0.86 ng/dL 0.61 -1.12 5 [place] [address] [phone] TSH 0.98 mcIU/mL 0.34-5.60 6 CBC Auto Diff 12/26/2016 [facility] White Blood 4.8 10^3/uL 3.5-10.8 [place] [address] Count [phone] Red Blood Count 4.18 10^6/uL 4.0-5.4 Hemoglobin [...] Cells % 0 Comp Metabolic Panel 12/26/2016 [facility] Sodium 137 mmol/L 133-145 [place] [address] [phone] Potassium 4.1 mmol/L 3.5-5.0 Chloride 103 mmol/L [...] Egfr Non- 106.6 >60 Egfr 137.1 >60 7 Laboratory test 12/26/2016 [facility] Magnesium 2.0 mg/dL 1.9 -2.7 [place] [address] [phone] Triglycerides 62 mg/dL 8 HDL Cholesterol 60.4 mg/dL 9 LDL Direct 98 mg/dL 10 Vitamin D Total 25(Oh) 74.2 ng/mL High 30-50 Urinalysis Profile 12/26/2016 [facility] [place] [address] [phone] Urine Appearance Clear Urine Specific [place] 1.015 1.010-1.030 Urine pH 7.0 5-9 Urine Urobilinogen Negative Negative Urine Ketones 1+ Negative Urine Protein Negative Negative Urine Leukocytes Negative Negative Urine Blood 1+ Negative Urine Nitrite Negative Negative Urine Bilirubin Negative Negative Urine Glucose Negative Negative Urine White Blood Cell Trace(0-5/hpf) Absent Urine Red Blood Cell Trace(0-2/hpf) Absent Urine Bacteria 1+ Absent Urine Squamous Epithelial Cell Present Absent Urine Culture And 12/26/2016 [facility] Urine Culture SEE RESULT 11 [place] [address] BELOW [phone] Laboratory test 10/30/2016 [facility] Troponin I 0.00 ng/mL < 0.04 [place] [address] [phone] Laboratory test 07/15/2016 [facility] Group B Strep SEE RESULT 12, 13 [place] [address] Culture BELOW [phone] Screen CBC With No Diff 05/13/2016 [facility] White Blood 8.4 10^3/uL 3.5-1 [place] [address] Count 0.8 [phone] Red Blood Count 3.82 10^6/uL Low 4.0-5.4 Hemoglobin 12.5 g/dL 12.0-16.0 Hematocrit 38 % 35-47 Mean Corpuscular Volume 100 fL High 80-97 Mean Corpuscular Hemoglobin 33 pg High 27-31 Mean Corpuscular HGB Conc 33 g/dL 31-36 Red Cell Distribution Width 15 % 10.5-15 Platelet Count 210 10^3/uL 150-450 Mean Platelet Volume 9 um3 7.4-10.4 Laboratory test 05/13/2016 [facility] Glucose 1 HR 157 mg/dL 70-160 14 [place] [address] Post Prandial [phone] GC/Chlamydia 02/18/2016 [facility] Chlamydia Negative [place] [address] trachomatis Rna [phone] Neisseria gonorrhoeae (GC) Rna Negative Negative Urine Culture And 01/21/2016 [facility] Urine Culture SEE RESULT 15 [place] [address] BELOW [phone] Parvovirus B19 Igg 01/21/2016 [facility] Parvovirus 5.50 index <0.90 16 & Igm [place] [phone] (B19) IgG [phone] Antibody Parvovirus (B19) IgM Antibody 0.16 index <0.90 17 Parvovirus Interpretation See Comment 18 Laboratory test 01/21/2016 [facility] TSH 0.34 mcIU/mL 0.34- 5.60 19 finding [place] [id number] [phone] T4 Free 0.87 ng/dL 0.61-1.12 20 Lead 01/21/2016 [facility] Lead <1.0 g/dL 0.0-4.9 21 [place] [address] [phone] HIV 1/2 AB 01/21/2016 [facility] HIV 1 2 Nonreactive Nonreactive 22 [place] [address] Antibody [phone] Type And 01/21/2016 [facility] Patient [place] [address] Blood Type [phone] Antibody Screen NEGATIVE CBC With No 01/21/2016 [facility] White Blood 8.7 10^3/uL 3.5 -10.8 [place] [address] Count [phone] Red Blood Count 4.02 10^6/uL 4.0-5.4 Hemoglobin 13.1 g/dL 12.0-16.0 Hematocrit 40 % 35-47 Mean Corpuscular Volume 98 fL High 80-97 Mean Corpuscular Hemoglobin 33 pg High 27-31 Mean Corpuscular HGB Conc 33 g/dL 31-36 Red Cell Distribution Width 14 % 10.5-15 Platelet Count 278 10^3/uL 150-450 Mean Platelet Volume 9 um3 7.4-10.4 PNL No 01/21/2016 [facility] Rubella Screen Immune IU/ mL Immune 23 [place] [address] [phone] Hemoglobin A1c 5.1 % Less than 6.0 24 Hepatitis B Surface Ag Nonreactive Nonreactive 25 Syphillis Igg W/Reflex RPR Nonreactive Nonreactive 26 Type And Screen 12/24/2015 [facility] Patient [place] [address] [phone] Antibody Screen NEGATIVE Laboratory test 12/24/2015 [facility] HCG 85743.00 mIU /mL 27 [place] [address] [phone] 1 [id number] 2 Normally menstruating females - Follicular phase 3 - 9 - Mid-cycle peak 4 - 23 - Luteal phase 1 - 6 Postmenopausal females 16 - 114 3 <5.0 Negative 5.0 - 25.0 Indeterminate (Repeat testing recommended after 72 hours) >25.0 Positive Perimenopausal women can display HCG levels of up to 20 mIU/mL 4 Estradiols <40 pg/mL are sent to a reference lab for low range testing. Postmenopausal Females < 20 Ovulating females: by day in cycle relative to LH Peak Follicular phase - 12 10-50 - 4 60-200 Mid-cycle - 1 120-375 Luteal phase + 2 50-155 + 6 60-260 + 12 15-115 5 [id number] 6 [id number] 7 Because ethnic data is not always readily [...] 15-29 5 Kidney failure <15 (or dialysis) 8 Desirable <150 Borderline high 150-199 High 200-499 Very High >500 9 Low <40 Desirable: 40-60 High: >60 10 Desirable: <100 mg/dL Near Optimal: 100-129 mg/dL Borderline High: 130-159 mg/dL High: 160-189 mg/dL Very High: >189 mg/dL 11 SEE RESULT BELOW Name: HENRIQUE LANDAVERDE : [address]: Gale Núñez MD Acct: [id number] Unit: [id number] AGE: 41 Location: LAB Re12/26/16 SEX: F Status: REG REF SPEC: [id number] DAMIAN: 12/26/16-[address]: Gale Núñez MD REQ: [id number] RECD: 12/26/16-1140 STATUS: BRITTA SANTA DR: Messi Khan MD _ SOURCE: URINE SPDESC: ORDERED: Urine Culture Procedure Result Reported Site Urine Culture Final 12/27/16- 1334 ML Organism 1 STREP GROUP B [place] Count 1-10,000 (Few) CFU/ML Organism 2 NORMAL REAGAN [place] Count 1-10,000 (Few) CFU/ML Susceptibility testing of penicillins and other B-lactams approved by FDA for treatment of Streptococcus pyogenes (Group A Strep) and Streptococcus agalactiae (Group B Strep) is not necessary for clinical purposes and need not be done routinely, since as with vancomycin, resistant strains have not been recognized. (CLSI A811-U00;p.66) Positive isolates will be saved for one week. Please call the Microbiology Laboratory if further susceptibility testing is needed. * ML - MAIN LAB ([facility]) . END OF REPORT * ML=Testing performed at Main Lab DEPARTMENT OF PATHOLOGY, [address] [place] [address] Maverick Haines M.D. Director [facility] # [id number] 12 [id number] 13 SEE RESULT BELOW Name: HENRIQUE LANDAVERDE : [address]: Casie Back MD Acct: [id number] Unit: [id number] AGE: 40 Location: [facility] Re07/15/16 SEX: F Status: REG REF SPEC: [id number] DAMIAN: 07/15/16-[address] [facility] [address]: Casie Back MD REQ: [id number] RECD: 07/16/16 STATUS: COMP _ SOURCE: CER/VAG/RE SPDESC: ORDERED: Grp B Strp Scrn COMMENTS: [id number] QUERIES: Is Patient Penicillin Allergic? N Is patient penicillin allergic and/or sensitivities needed? N Provider Requisition # C77#[id number]_ Procedure Result Reported Site Group B Strep Culture Screen Final 07/19/16- 945 ML Group B Strep Screen Negative * ML - MAIN LAB ([facility]) . END OF REPORT * ML=Testing performed at Main Lab DEPARTMENT OF PATHOLOGY, [address] [place] [address] Maverick Haines M.D. Director [facility] # [id number] 14 [id number] 15 SEE RESULT BELOW Name: HENRIQUE LANDAVERDE : [address]: Mansi Flaherty [facility] Acct: [id number] Unit: [id number] AGE: 40 Location: [facility] Re01/21/16 SEX: F Status: REG REF SPEC: [id number] DAMIAN: 01/21/16-[address]: Mansi Flaherty [facility] REQ: [id number] RECD: 01/21/16 STATUS: COMP _ SOURCE: URINE SPDESC: ORDERED: Urine Culture COMMENTS: [facility] [address] Procedure Result Reported Site Urine Culture Final 01/23/16- 906 ML No growth of clinically significant organisms * ML - [facility] ([facility]) . END OF REPORT * ML=Testing performed at Main Lab DEPARTMENT OF PATHOLOGY, [address] [place] [address] Maverick Haines M.D. Director [facility] # [id number] 16 Positive 17 Negative 18 RESULT: Results suggest past infection. Test Performed by: [place] [address] Measurement Operator: Marlo Jeffrey II, M.D., Ph.D. 19 [id number] 20 [id number] 21 ADDITIONAL INFORMATION Testing performed by Inductively Coupled Plasma-Mass Spectrometry (ICP-MS). This test was developed and its performance characteristics determined by [facility] in a manner consistent with CLIA requirements. This test has not been cleared or approved by the U.S. Food and Drug Administration. 22 It is recognized that currently available assays [...] 95% confidence interval of 99.78 to 99.96%. 23 [id number] 24 Therapeutic target for the treatment of diabetes Mellitus patients is <7% HBA1C, and in selective patients <6.0%.Please refer to [place] [employer] Diabetic care guidelines for further information. 25 [id number] 26 Warning: A positive result is not useful for establishing a diagnosis of syphilis. In most situations, such a result may reflect a prior treated infection; a negative result can exclude a diagnosis of syphilis except for incubating or early primary disease. 27 <5.0 Negative 5.0 - 25.0 Indeterminate (Repeat testing recommended after 72 hours) >25.0 Positive Perimenopausal women can display HCG levels of up to 20 mIU/mL Procedures Date Code Description Status 04/06/2018 34123 OB Ultrasound First Trimester Completed 10/26/2017 84175 Echography Pelvic Limited Or Follow-Up Completed 10/26/2017 81595 Echography Transvaginal Completed 10/01/2016 03939 Echography Transvaginal Completed 08/18/2016 20255 Antepartum Care 7 Or More Visits Completed 08/18/2016 65416 Non-Stress Test Completed 08/14/2016 89235 Biophysical Profile Without Non Stress Test Completed 08/14/2016 20855 Echography Uterus Follow-Up Or Repeat Completed 07/15/2016 38642 Biophysical Profile Without Non Stress Test Completed 07/15/2016 38063 Echography Uterus Follow-Up Or Repeat Completed 06/24/2016 31081 Biophysical Profile Without Non Stress Test Completed 06/24/2016 47384 Echography Uterus Follow-Up Or Repeat Completed 03/20/2016 61852 Echography Uterus Complete Completed 01/21/2016 32849 OB Ultrasound First Trimester Completed Encounters Type Date Location Provider Dx Diagnosis Office Visit 10/26/2017 [facility] Lauri Cordoba, N92.6 Irregular 2:40p M.D. menstruation, unspecified R19.07 Generalized intra-abd and pelvic swelling, mass and lump Office Visit 08/11/2017 11:40a [facility] Lauri Wilson92.6 Irregular Kristyn Cordoba menstruation, unspecified O36.80x0 w inconclusive viability, unsp R63.4 Abnormal weight loss R19.07 Generalized intra-abd and pelvic swelling, mass and lump Office Visit 01/01/2017 9:30a [facility] Messi Khan, N92.5 Other specified M.D. irregular menstruation Office Visit 08/22/2016 9:02a Delivery Nazanin Casie, Z39.2 Encounter for MD routine follow-up Office Visit 12/24/2015 10:40a [facility] Tamela Aida, O20.0 Threatened ANP-C Plan of Treatment 01/01/2017 - Messi Khan M.D.N92.5 Other specified irregular menstruationComments:cbc, TSH, T4Keep track of menses. Irreg menses likely d/t recent , higher dose steroids may have contributed to irreg VBIf VB does not regulate in approx 6 months, will sched f/u with TV sonogram
[2018-05-02] MEDS ORDERED: NS 0.9% 1000 ML* 1,000 ML IV ONE (05:58)
[2018-05-02] MEDS ORDERED: Acetaminophen TAB* 325 MG PO ONE (05:59)
--- NOTE | 2018-05-02 05:59 | ED ---
Complex/Multi-Sys Presentation - HPI Summary HPI Summary: Patient is a 42-year-old female who presents emergency department for headache, myalgias, fever since yesterday. Patient notes that she is currently going through a miscarriage. Patient states she had a demise at 9 weeks which was about 3-4 weeks ago. States she saw her OB at 9 weeks and 10 weeks and wanted to see her very weak but patient did not want to kill contact Us. Patient was hoping to have a natural miscarriage at home. Patient notes she's been taking herbal supplements with hopes of reducing retractions. Patient states she is having scant intermittent vaginal bleeding but otherwise denies vaginal discharge. She is intermittent lower abdominal discomfort currently denies pain or cramping. Past medical history of asthma. Symptoms are moderate in severity. No current modifying factors. Patient's OB is Dr. Parra. She otherwise denies sore throat, sinus congestion, cough, urinary symptoms. She does note mild pain to a tooth a few days ago that has resolved. - History Of Current Complaint Chief Complaint: EDHeadache Time Seen by Provider: 05/02/18 05:40 Hx Obtained From: Patient - Allergies/Home Medications Allergies/Adverse Reactions: Allergies Allergy/AdvReac Type Severity Reaction Status Date / Time MS Amoxicillin [Amoxicillin] Allergy Severe DYSPNEA Verified 08/21/16 10:45 MS Pseudoephedrine Allergy Severe Tachycardia Verified 08/21/16 10:45 [Pseudoephedrine] IVP DYE Allergy Severe DYSPNEA Uncoded 08/21/16 10:45 AUGMENTIN AdvReac Severe Diarrhea Uncoded 08/21/16 10:45 PMH/Surg Hx/FS Hx/Imm Hx Previously Healthy: Yes Cardiovascular History: Reports: Other Cardiovascular Problems/Disorders - Sluggish tricuspid mitral valve Denies: Hx Pacemaker/ICD Respiratory History: Reports: Hx Asthma Sensory History: Denies: Hx Hearing Aid Psychiatric History: Denies: Hx Panic Disorder - Cancer History Hx Hematologic Symptoms: No - Surgical History Surgery Procedure, Year, and Place: CARDIAC ABLATION FOR SVT, CERVICAL POLYP REMOVED 2002, Hx Anesthesia Reactions: No Infectious Disease History: Yes Infectious Disease History: Denies: Traveled Outside the [place] in Last 30 Days - Family History Known Family History: Positive: Cardiac Disease - Father had stents, Diabetes - Father had type 2 diabetes, Respiratory Disease - Father - pneumonia, Other - Father - TIA, Mother - gallbladder issues Negative: Renal Disease, Seizure Disorder - Social History Occupation: Unemployed Lives: With Family Alcohol Use: None Substance Use Type: Reports: None Hx Tobacco Use: No Smoking Status (MU): Never Smoked Tobacco Have You Smoked in the Last Year: No Review of Systems Positive: Fever, Chills Eyes: Negative ENT: Negative Cardiovascular: Negative Negative: Palpitations, Chest Pain Respiratory: Negative Negative: Shortness Of Breath, Cough Positive: Nausea. Negative: Abdominal Pain, Vomiting, Diarrhea Positive: other - scant vaginal bleeding Positive: Myalgia Skin: Negative Positive: Headache. Negative: Weakness, Paresthesia, Numbness, Syncope, Slurred Speech All Other Systems Reviewed And Are Negative: Yes Physical Exam Triage Information Reviewed: Yes Vital Signs On Initial Exam: Initial Vitals Temp Pulse Resp BP Pulse Ox 99.6 F 100 16 108/64 98 05/02/18 05:22 05/02/18 05:22 05/02/18 05:22 05/02/18 05:22 05/02/18 05:22 Vital Signs Reviewed: Yes Appearance: Positive: Well-Appearing - Pt. sitting up in bed in NAD Skin: Positive: Dry - Very hot to touch Head/Face: Positive: Normal Head/Face Inspection Eyes: Positive: Normal, EOMI, MARGAUX, Conjunctiva Clear ENT: Positive: Pharyngeal erythema, TMs normal Neck: Positive: Supple, Nontender. Negative: Nuchal Rigidity Respiratory/Lung Sounds: Positive: Clear to Auscultation, Breath Sounds Present Cardiovascular: Positive: Normal, RRR Abdomen Description: Positive: Other: - appearing. Mild pain to suprapubic region. No CVA tenderness bilaterally Pelvic Exam: Positive: Other - External genitalia. Speculum exam reveals a closed os without bleeding. Scant amount of dark blood on a pad. Exam perfomed with tech Miladys. Musculoskeletal: Positive: Normal, Strength/ROM Intact. Negative: Edema Left, Edema Right Neurological: Positive: Normal, CN Intact II-III Psychiatric: Positive: Affect/Mood Appropriate Diagnostics - Vital Signs Vital Signs Temp Pulse Resp BP Pulse Ox 05/02/18 05:22 99.6 F 100 16 108/64 98 - Laboratory Result Diagrams: 05/02/18 06:41 05/02/18 06:41 Lab Statement: Any lab studies that have been ordered have been reviewed, and results considered in the medical decision making process. Complex Multi-Symp Course/Dx Course Of Treatment: Pt. sitting for fever, headache and malaise with a known demise she has not yet passed. She does have a low-grade fever in the ER 99.6 years Fahrenheit, heart rate 100 bpm, but pressure soft 118/64. Concerned for endometritis. We'll obtain labs and cultures. Patient started on IV fluids and given Tylenol for fever. Pending ultrasound. U/S read per radiology : IMPRESSION: #. Nonviable appearing intrauterine gestation with gestational age of 7 weeks 3 days based. on the crown-rump length. #. 0.8 x 0.5 x 1.3 cm irregular morphology partially cystic structure within the. posterior endometrium inferior to the described gestational sac without a visualized . pole or yolk sac may represent an additional involuting gestational sac or perigestational. hemorrhage. #. 3.4 cm mildly complex follicular or hemorrhagic cyst of the RIGHT ovary. A corpus. luteum cyst would also be possible. CBC shows a normal WBC and CRP is not elevated. U/A negative for infection .Given normal WBC and CRP and minimal abd. tenderness suspicion for endometritis is low. I spoke with siena PURVIS, Dr. Back. She reviewed labs and u/s. She agrees most like not endometritis and she okays pt. to be dc home today from ER. Does not recommend antibxs. She would like pt. seen in the office in 1-2 days. Results and plan discussed with pt. Discussed with her it is very important for her to be seen in office tomorrow to discuss options. Pt. states she really does not want a D and C and would still like to attempt to pass naturally. Pt. agrees to call office today for an apt. for tomorrow. To return to ER for abd. pain, high fever, vomiting or if concerned. Pt .understands and agrees with plan. - Diagnoses Provider Diagnoses: Viral syndrome, Missed Discharge - Sign-Out/Discharge Documenting (check all that apply): Patient Departure - Discharge Plan Condition: Improved Disposition: HOME Patient Education Materials: Miscarriage (ED), Fever in Adults (ED) Referrals: Wilton PEACOCK,Gale [Primary Care Provider] - Lauri Cordoba MD [Medical Doctor] - Additional Instructions: Call Dr. Cordoba's office today to schedule an appointment for tomorrow Tylenol or motrin for fever and discomfort as directed Return to ER for abdominal pain, high fever, vomiting or if concerned - Billing Disposition and Condition Condition: IMPROVED Disposition: Home
[2018-05-02 06:51] LABS: ABS Basophils 0 10^3/ul (0-0.2); ABS Eosinophils 0.1 10^3/ul (0-0.6); ABS Lymphocytes 0.8 10^3/ul (1.0-4.8); ABS Monocytes 0.3 10^3/ul (0-0.8); ABS Neutrophils 3.3 10^3/ul (1.5-7.7); ABS Nucleated RBC 0 10^3/ul; Hematocrit 34 % (35-47); Hemoglobin 11.5 g/dl (12.0-16.0); Lymphocyte % 17.7 %; Mean Corpuscular HGB Conc 34 g/dl (31-36); Mean Corpuscular Hemoglobin 32 pg (27-31); Mean Corpuscular Volume 96 fL (80-97); Mean Platelet Volume 6.9 fL (7.4-10.4); Nucleated Red Blood Cells % 0.1; Platelet Count 187 10^3/ul (150-450); Red Blood Count 3.56 10^6/ul (4.00-5.40); Red Cell Distribution Width 14 % (10.5-15); White Blood Count 4.6 10^3/ul (3.5-10.8)
[2018-05-02 07:25] LABS: Urine Appearance Clear; Urine Blood 1+ (Negative); Urine Color Colorless; Urine Ketones Negative (Negative); Urine Protein Negative (Negative); Urine Red Blood Cell Absent (Absent); Urine Specific Gravity 1.001 (1.010-1.030); Urine Urobilinogen Negative (Negative); Urine White Blood Cell Absent (Absent)
[2018-05-02 09:41] VITALS: BP 100/65
== END 2018-05-02 09:40 | disposition home or self-care (01) ==
LOC: ED 05:10
DX: O02.1 Missed abortion (principal); O98.511 Other viral diseases complicating pregnancy, first trimester; B34.9 Viral infection, unspecified; Z3A.10 10 weeks gestation of pregnancy
CPT/HCPCS: 36415; 76817; 80053; 81003; 81015; 83605; 85025; 86140; 87040; 96360; 96361; 99282; A9270-GY

== ENCOUNTER → 2018-06-30 08:30 | Day surgery (SDC) | payer BC, MEDICAID ==
[~2018-06-30 08:30] MED LIST: Acetaminophen TAB* 325 MG PO PRN; Buffered Lidocaine 1% SYRIN* 1 ML/SYRINGE INTRADERM ONE; Chloroprocaine 2%* 20 ML VIAL ONE; Ketorolac INJ* 30 MG/ML 1 ML VIAL IV PRN; Lactated Ringers 1000 ML Bag* 1,000 ML IV SCH; Lidocaine 2% PF * 5 ML VIAL ONE; Midazolam* 1 MG/ML 2 ML VIAL (2 MG) ONE; Naloxone* 0.4 MG/ML 1 ML VIAL IV PRN; OXYTOCIN* 10 UNITS/ML 1 ML VIAL ONE; Ondansetron INJ* 2 MG/ML VIAL IV PRN; Propofol* 10 MG/ML 20 ML BTL ONE; fentaNYL* 50 MCG/ML 2 ML VIAL (100 MCG VIAL) IV PRN; oxyCODONE TAB* 5 MG TAB PO PRN
[2018-06-30 09:28] LABS: ABS Basophils 0 10^3/ul (0-0.2); ABS Eosinophils 0.1 10^3/ul (0-0.6); ABS Lymphocytes 0.7 10^3/ul (1.0-4.8); ABS Monocytes 0.2 10^3/ul (0-0.8); ABS Neutrophils 1.7 10^3/ul (1.5-7.7); ABS Nucleated RBC 0 10^3/ul; Eosinophil % 3.7 %; Hematocrit 35 % (35-47); Hemoglobin 11.4 g/dl (12.0-16.0); Lymphocyte % 25.4 %; Mean Corpuscular HGB Conc 33 g/dl (31-36); Mean Corpuscular Hemoglobin 32 pg (27-31); Mean Corpuscular Volume 98 fL (80-97); Mean Platelet Volume 8.5 fL (7.4-10.4); Nucleated Red Blood Cells % 0; Platelet Count 157 10^3/ul (150-450); Red Blood Count 3.52 10^6/ul (4.00-5.40); Red Cell Distribution Width 14 % (10.5-15); White Blood Count 2.6 10^3/ul (3.5-10.8)
--- NOTE | 2018-06-30 11:51 | OP ---
DATE OF OPERATION: 06/30/18 - [facility] DATE OF : 77 SURGEON: Lauri Cordoba MD ANESTHESIA: Spinal. PRE-OP DIAGNOSIS: Missed . POST-OP DIAGNOSIS: Missed . OPERATIVE PROCEDURE: D and C. COMPLICATIONS: None. ESTIMATED BLOOD LOSS: 50 cc. FINDINGS: Include macerated products of conception. DESCRIPTION OF PROCEDURE: The patient identified, procedure identified as a D and C. The patient was taken to the operating room, prepped and draped in the usual fashion in the dorsal lithotomy position under spinal anesthesia. Two single-tooth tenaculums were placed on the anterior lip of the cervix. The cervix was easily dilated up to a #31 Arndt dilator. The #10 suction curette was inserted and suction curettage performed with no tissue obtained. The polyp forceps were placed and the tissue was teased out using this. There was moderate amount of tissue that appeared macerated. After removal of everything with the polyp forceps, the sharp curette was used and sharp curettage performed until gritty sensation was felt throughout the circumference. The suction curettage was reinserted and suction curettage performed with again minimal tissue obtained. Sharp curette was used to check the cavity wall and there was a gritty sensation throughout the circumference and no more tissue was obtained. Good hemostasis was verified. All instruments removed from the vagina and the patient returned to the recovery room in stable condition. All sponge and instruments counts were correct. [id number]/[facility] #: [id number] PAPITO
[2018-06-30 13:00] VITALS: BP 103/69
== END | disposition home or self-care (01) ==
LOC: OR 08:30
PROVIDERS: ATTEND Obstetrics & Gynecology
DX: O02.1 Missed abortion (principal); J45.909 Unspecified asthma, uncomplicated; L30.9 Dermatitis, unspecified
CPT/HCPCS: 36415; 85025; 86850; 86900; 86901; 88305; J2250; J2400; J2590; J2704